=== PATIENT | female | born 1990 | race Hispanic/Latino ===

== ENCOUNTER → 2017-04-16 | Outpatient (CLI) | payer OTHER ==
--- NOTE | 2017-04-16 11:19 | REP ---
TRIPLE PHASE BONE SCAN BILATERAL LOWER LEGS: Following the intravenous administration of 22 mCi of technetium 99m MDP, patient's lower legs are imaged in the flow phase in the anterior and posterior projections showing symmetrical blood flow bilaterally. Immediate blood pool and 2 hour delayed images are performed of the lower legs in various projections. There is no focal increased blood pooling identified. Delayed images show some mild linear uptake along the tibial shafts bilaterally possibly indicating some minor stress periostitis. No stress fracture is seen. IMPRESSION: Possible mild bilateral stress periostitis of the tibial shafts without evidence of focal stress fracture bilaterally. Signed by Matias Singh MD 04/16/2017 05:56 P
== END ==
LOC: M RAD 08:19
PROVIDERS: ATTEND Family Medicine
DX: M79.604 Pain in right leg (principal); M79.605 Pain in left leg
CPT/HCPCS: 78315; A9503

== ENCOUNTER 2017-09-29 19:44 | Emergency (ER) | payer OTHER ==
[2017-09-29] MEDS: NS 1,000 ML IV (21:54)
[2017-09-29] MEDS: ONDANSETRON 4MG/2ML VIAL (J2405) IV (21:55)
[2017-09-29] MEDS: MORPHINE 4 MG/ML 1ML VIAL/SYRINGE (J2270) IV ×2 (21:55→23:08)
[2017-09-29 21:58] LABS: BASO % 0.4 % (0.0-1.0); EOS # 0.1 10^3/uL (0.0-0.50); EOS % 0.8 % (0.0-3.0); HEMATOCRIT 41.4 % (36.0-47.0); IMMATURE GRANULOCYTE % 0.3 % (0-3.0); LYMPH # 3.3 10^3/uL (1.5-6.5); MEAN CORPUSCULAR HEMOGLOBIN 30.7 pg (27.0-33.0); MEAN CORPUSCULAR HGB CONC 33.8 g/dl (32.0-36.5); MEAN CORPUSCULAR VOLUME 90.8 fl (80.0-96.0); MONO % 8.4 % (0.0-5.0); NEUTROPHILS % 61.1 % (36.0-66.0); PLATELET COUNT, AUTOMATED 301 10^3/uL (150-450); RED BLOOD COUNT 4.56 10^6/uL (4.00-5.40); RED CELL DISTRIBUTION WIDTH 12.1 % (11.5-14.5); WHITE BLOOD COUNT 11.4 10^3/uL (4.0-10.0)
[2017-09-29 22:21] LABS: CONTROL LINE HCG INT CTR LINE PRESENT; HCG, SERUM QUALITATIVE NEGATIVE (NEGATIVE)
[2017-09-29 22:32] LABS: ALBUMIN/GLOBULIN RATIO 1.18 (1.00-1.93); ALKALINE PHOSPHATASE 44 U/L (45-117); ALT/SGPT 29 U/L (12-78); ANION GAP 8 MEQ/L (8-16); AST/SGOT 15 U/L (7-37); BILIRUBIN,DIRECT 0.1 MG/DL (0.0-0.2); BILIRUBIN,TOTAL 0.6 MG/DL (0.2-1.0); BLOOD UREA NITROGEN 8 MG/DL (7-18); CALCIUM LEVEL 9.3 MG/DL (8.5-10.1); CARBON DIOXIDE LEVEL 26 MEQ/L (21-32); CHLORIDE LEVEL 107 MEQ/L (98-107); CREATININE FOR GFR 1.03 MG/DL (0.55-1.30); GLOMERULAR FILTRATION RATE > 60.0 (>60); GLUCOSE, FASTING 100 MG/DL (70-100); LIPASE 120 U/L (73-393); POTASSIUM SERUM 4.1 MEQ/L (3.5-5.1); SODIUM LEVEL 141 MEQ/L (136-145); TOTAL PROTEIN 7.4 GM/DL (6.4-8.2)
[2017-09-29] MEDS: KETOROLAC 30 MG/ML VIAL (J1885) IV (23:35)
== END 2017-09-30 02:02 | disposition home or self-care (01) ==
LOC: M ED 09-30 02:02
DX: R51 Headache (principal); R11.2 Nausea with vomiting, unspecified; H53.149 Visual discomfort, unspecified; W01.198A Fall on same level from slipping, tripping and stumbling with subsequent striking against other object, initial encounter; Y92.091 Bathroom in other non-institutional residence as the place of occurrence of the external cause
CPT/HCPCS: J2270

== ENCOUNTER 2018-08-30 08:46 | Emergency (ER) | payer OTHER ==
[~2018-08-30] VITALS: Ht 172.7 cm; Wt 63.6 kg
[~2018-08-30 08:46] MED LIST: BIRTH CONTROL PO; IBUP-1114 PO; TYLE325T5 PO; ZOFR4TAB14 PO
[2018-08-30] MEDS ORDERED: CETI10CA2 PO (08:51)
[2018-08-30] MEDS ORDERED: diazePAM 5 MG TAB PO ONE (09:30)
[2018-08-30] MEDS ORDERED: KETOROLAC 60 MG/2 ML VIAL (J1885) IM ONE (09:30)
[2018-08-30 10:11] VITALS: BP 115/74
[2018-08-30] MEDS ORDERED: CYCL10TA PO (10:36)
[2018-08-30] MEDS ORDERED: IBUP-1022 PO (10:36)
--- NOTE | 2018-08-30 10:38 | REP ---
LUMBAR SPINE, FIVE VIEWS: HISTORY: Back pain. There is no acute fracture or subluxation. The L3-4 and L4-5 intervertebral discs are decreased in height consistent with disc degeneration. The facet joints are normal in appearance. IMPRESSION: There is no acute fracture or subluxation. Electronically Signed by Dionisio Bowman MD 08/30/2018 10:40 A
== END 2018-08-30 10:57 | disposition home or self-care (01) ==
LOC: M ED 08:46
DX: S39.012A Strain of muscle, fascia and tendon of lower back, initial encounter (principal); X50.0XXA Overexertion from strenuous movement or load, initial encounter; Y92.9 Unspecified place or not applicable; M62.830 Muscle spasm of back; Z79.899 Other long term (current) drug therapy
CPT/HCPCS: 72110; 96372; 99283; J1885